=== PATIENT | female | born 1995 | race African-American/Black ===

== ENCOUNTER 2018-06-30 06:44 | Emergency (ER) | payer MEDICAID ==
[~2018-06-30] VITALS: Ht 175.3 cm; Wt 66.5 kg
[2018-06-30 13:06] LABS: CLARITY URINE CLEAR (CLEAR); COLOR URINE YELLOW (YELLOW); KETONES URINE NEGATIVE (NEGATIVE); LEUKOCYTE ESTERASE URINE NEGATIVE (NEGATIVE); NITRITE URINE NEGATIVE (NEGATIVE); OCCULT BLOOD URINE TRACE (NEGATIVE); PH URINE 6.5 (4.5-8.0); PROTEIN URINE NEGATIVE (NEGATIVE); SPECIFIC GRAVITY URINE 1.011 (1.005-1.030); UROBILINOGEN URINE 0.2 E.U./dL (0.2-1.0)
[2018-06-30 13:08] LABS: BASOPHILS % 0.3 % (0.0-2.0); EOSINOPHILS % 1.8 % (0.0-5.0); HEMATOCRIT. 37.2 % (36.0-48.0); HEMOGLOBIN. 12.5 g/dL (12.0-16.0); LYMPHOCYTES % 52.8 % (20.0-50.0); MEAN CORPUSCULAR HEMOGLOBIN 28.9 pg (28.0-32.0); MEAN CORPUSCULAR VOLUME 85.7 fL (81.0-99.0); MEAN PLATELET VOLUME 8.6 fl (7.4-10.4); MONOCYTES % 8.7 % (2.0-8.0); NEUTROPHILS % 36.4 % (40.0-76.0); PLATELET 222 x1000/uL (130-400); RED BLOOD CELL COUNT 4.33 mill/uL (4.2-5.4); RED CELL DISTRIBUTION WIDTH 13.8 % (11.6-14.6)
[2018-06-30 13:12] LABS: CHLORIDE 105 mEq/L (98-107)
[2018-06-30 13:17] LABS: HCG SCREEN NEGATIVE
[2018-06-30 16:00] VITALS: BP 100/67
== END 2018-06-30 16:00 | disposition home or self-care (01) ==
LOC: ER 07:33
DX: R60.0 Localized edema (principal)
CPT/HCPCS: 36415; 80053; 81003; 84703; 85025; 99284

== ENCOUNTER 2021-04-24 23:50 | Emergency (ER) | payer BC, MEDICAID ==
[~2021-04-24] VITALS: Ht 172.7 cm; Wt 70.0 kg
[2021-04-25 00:15] VITALS: BP 120/65
== END 2021-04-25 12:56 | disposition home or self-care (01) ==
LOC: ER 23:50
DX: R45.851 Suicidal ideations (principal); I49.8 Other specified cardiac arrhythmias
CPT/HCPCS: 93005; 99284

== ENCOUNTER 2025-11-17 01:34 | Emergency (ER) | payer BC, MEDICAID ==
[~2025-11-17] VITALS: Ht 172.7 cm; Wt 80.0 kg
[2025-11-17 01:46] VITALS: TEMP 36.8; O2SAT 100
[2025-11-17 03:07] LABS: BASOPHILS % 0.5 % (0.0-2.0); EOSINOPHILS % 1.7 % (0.0-5.0); HEMATOCRIT. 38.3 % (36.0-48.0); HEMOGLOBIN. 12.4 g/dL (12.0-16.0); LYMPHOCYTES % 41.0 % (20.0-50.0); MEAN PLATELET VOLUME 8.8 fl (7.4-10.4); MONOCYTES % 9.4 % (2.0-8.0); NEUTROPHILS % 47.4 % (40.0-76.0); PLATELET 224 x1000/uL (130-400); RED BLOOD CELL COUNT 4.45 mill/uL (4.2-5.4); RED CELL DISTRIBUTION WIDTH 14.0 % (11.6-14.6)
[2025-11-17 03:18] LABS: CREATININE 0.9 mg/dL (0.6-1.0); UREA NITROGEN BLOOD 13 mg/dL (9-23)
[2025-11-17 03:45] LABS: CLARITY URINE CLEAR (CLEAR); COLOR URINE YELLOW (YELLOW); GLUCOSE URINE NEGATIVE (NEGATIVE); KETONES URINE NEGATIVE (NEGATIVE); LEUKOCYTE ESTERASE URINE NEGATIVE (NEGATIVE); NITRITE URINE NEGATIVE (NEGATIVE); OCCULT BLOOD URINE NEGATIVE (NEGATIVE); PH URINE 6.5 (4.5-8.0); PROTEIN URINE NEGATIVE (NEGATIVE); SPECIFIC GRAVITY URINE 1.014 (1.005-1.030); UROBILINOGEN URINE 0.2 E.U./dL (0.2-1.0)
[2025-11-17] MEDS: KETOROLAC 15MG/ML VIAL IM ONE (03:45)
[2025-11-17 04:39] LABS: HCG SCREEN NEGATIVE
[2025-11-17] MEDS ORDERED: NAPR-1176 MT (05:20)
[2025-11-17] MEDS ORDERED: LIDO-53 TP (05:20)
[2025-11-17 06:06] VITALS: BP 116/60; PULSE 67; RESP 19; O2SAT 100
== END 2025-11-17 06:00 | disposition home or self-care (01) ==
LOC: ER 01:34
DX: R55 Syncope and collapse (principal); R10.20 Pelvic and perineal pain unspecified side; Z79.1 Long term (current) use of non-steroidal anti-inflammatories (NSAID)
CPT/HCPCS: 99285; 74176; 80048; 81003; 84703; 85025; 36415; 93005; 96372; J1885